=== PATIENT | male | born 1970 | race Caucasian/White ===

== ENCOUNTER 2017-01-14 13:04 | Emergency (ER) | payer OTHER ==
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
--- NOTE | 2017-01-14 15:19 | ED ORDER SUMMARY ---
..... Patient: DERRICK VELIZ JR OrderSheet [facility] VisitID: [id number] [address] [place] [address] 46y, M Registration Date/Time: 01/14/2017 ORDER SHEET Weight: 95.2 kg (stated) Allergies: No Known Drug Allergy GENERAL ORDERS: UA-Culture if indicated Urgent (13:17 01/14/2017 JBoardley R.N. per protocol) (Ack 13:18 PWeiler ER Tech1) (13:18 PWeiler ER Tech1) US Abdomen Limited (No) Urgent (13:31 01/14/2017 HBivens A.R.N.P.) (Ack 13:33 PWeiler ER Tech1) (13:38 HBivens A.R.N.P.) (Cancelled: Other13:38 HBivens A.R.N.P.) CBC w Diff Urgent (13:32 01/14/2017 HBivens A.R.N.P.) (Ack 13:33 PWeiler ER Tech1) (13:34 JBoardley R.N.) CMP Urgent (13:32 01/14/2017 HBivens A.R.N.P.) (Ack 13:33 PWeiler ER Tech1) (13:34 JBoardley R.N.) US Pelvic Complete Urgent (13:38 01/14/2017 HBivens A.R.N.P.) (Ack 13:40 PWeiler ER Tech1) (14:16 HBivens A.R.N.P.) (Cancelled: Other14:16 HBivens A.R.N.P.) - (US Pelvis Limited) (14:16 01/14/2017 HBivens A.R.N.P.) (Ack 14:22 PWeiler ER Tech1) (14:51 JBoardley R.N.) MEDICATION ORDERS: IV FLUIDS: IV Saline Lock (13:32 01/14/2017 HBivens A.R.N.P.) (Ack 13:32 JBoardley R.N.) (13:35 JBoardley R.N.) ORDER SHEET NOTES: [Electronically signed by Amandeep Epstein R.N. (15:44 01/14/2017)] [Electronically signed by Chapis Tejada (15:51 01/14/2017)] [Electronically locked/signed by Amandeep Epstein R.N. (15:44 01/14/2017)]
--- NOTE | 2017-01-14 15:19 | ED ORDER SUMMARY ---
..... Patient: DERRICK VELIZ JR OrderSheet [facility] VisitID: [id number] [address] [place] [address] 46y, M Registration Date/Time: 01/14/2017 ORDER SHEET Weight: 95.2 kg (stated) Allergies: No Known Drug Allergy GENERAL ORDERS: UA-Culture if indicated Urgent (13:17 01/14/2017 JBoardley R.N. per protocol) (Ack 13:18 PWeiler ER Tech1) (13:18 PWeiler ER Tech1) US Abdomen Limited (No) Urgent (13:31 01/14/2017 HBivens A.R.N.P.) (Ack 13:33 PWeiler ER Tech1) (13:38 HBivens A.R.N.P.) (Cancelled: Other13:38 HBivens A.R.N.P.) CBC w Diff Urgent (13:32 01/14/2017 HBivens A.R.N.P.) (Ack 13:33 PWeiler ER Tech1) (13:34 JBoardley R.N.) CMP Urgent (13:32 01/14/2017 HBivens A.R.N.P.) (Ack 13:33 PWeiler ER Tech1) (13:34 JBoardley R.N.) US Pelvic Complete Urgent (13:38 01/14/2017 HBivens A.R.N.P.) (Ack 13:40 PWeiler ER Tech1) (14:16 HBivens A.R.N.P.) (Cancelled: Other14:16 HBivens A.R.N.P.) - (US Pelvis Limited) (14:16 01/14/2017 HBivens A.R.N.P.) (Ack 14:22 PWeiler ER Tech1) (14:51 JBoardley R.N.) MEDICATION ORDERS: IV FLUIDS: IV Saline Lock (13:32 01/14/2017 HBivens A.R.N.P.) (Ack 13:32 JBoardley R.N.) (13:35 JBoardley R.N.) ORDER SHEET NOTES: [Electronically signed by Amandeep Epstein R.N. (15:44 01/14/2017)] [Electronically signed by Chapis Tejada (15:51 01/14/2017)] [Electronically locked/signed by Amandeep Epstein R.N. (15:44 01/14/2017)]
--- NOTE | 2017-01-14 15:52 | ED DISCHARGE INSTRUCTIONS ---
Patient: DERRICK VELIZ JR General Instructions [facility] VisitID: [id number] [address] [place] [address] 46y, M Registration Date/Time: 01/14/2017 Acute suprapubic abdominal pain. Reducible and recurrent right inguinal hernia. No incarcerated hernia, obstruction or gangrene. INSTRUCTIONS Warnings: GENERAL WARNINGS: Return or contact your physician immediately if your condition worsens or changes unexpectedly, if not improving as expected, or if other problems arise. SPECIFICALLY, return if you develop pain in the abdomen or pelvis, fever, the inability to keep fluids down, blood in vomitus, blood in diarrhea, fainting or lightheadedness. Prescription Medications: Ultram 50 mg tablets: take 1-2 orally every 6 hours as needed for pain. Dispense twenty (20). No refills. Substitution is permissible. Understanding of the discharge instructions verbalized by patient. Follow-up with: Alvino Holland MD, General Surgeon, , [place] [id number]; Edin Esquivel MD, General Surgeon, , [place] [address]; Gauri Narayan MD, General Surgery, , [address] [place] [address] Follow up in about two days. Call for an appointment. Summary of care provided to patient. ADDITIONAL INFORMATION Abdominal Pain,Uncertain Cause [Male] Based on your visit today, the exact cause of your abdominalpain is not clear. Your exam and tests do not indicate a dangerous cause at this time. However, the signs of a serious problem may take more time to appear. Although your evaluation was reassuring today, sometimes early in the course of many conditions, exam and lab tests can appear normal. Therefore, it is important for you to watch for any new symptoms or worsening of your condition. Causes It may not be obvious what caused your symptoms. Pay attention to things that do seem to make your symptoms worse or better and discuss this with your doctor when you follow up. Diagnosis The evaluation of abdominal pain in the emergency department may onlyrequire an exam by the doctor or it may include blood, urine or imaging studies, depending on many factors. Sometimes exams and tests can identify a cause but in many cases, a clear cause is not found. Further testing at follow up visits may help to suggest a clear diagnosis. Home Care Rest as much as possible until your next exam. Try to avoid any medications (unless otherwise directed by your doctor), foods, activities, or other factors that you may have contributed to your symptoms. Try to eat foods that you know that you have tolerated well in the past. Certain diets may be recommended for some conditions that cause abdominal pain. However, since the cause of your symptoms may not be clear, discuss your diet more with your primary care provider or specialist for further recommendations. Eating several small meals per day as opposed to 2 or 3 larger meals may help. Monitor closely for anything that may make your symptoms worse or better. Pay close attention to symptoms below that may indicate worsening of your condition. Follow Up and Precautions See your doctoras instructed or sooneror if your symptoms are not improving.In some cases, you may need more testing. When to Seek Medical Attention Contact your doctor or see medical attention ifany of the following occur: Pain is becoming worse You are unable to take your medications due to excessive vomiting Swelling of the abdomen Fever of 100.4F (38C) or higher, or as directed by your health care provider Blood in vomit or bowel movements (dark red or black color) Jaundice (yellow color of eyes and skin) New onset of weakness, dizziness or fainting New onset of chest, arm, back, neck or jaw pain Abdominal Pain, Possible Appendicitis, Repeat Exam, Male Based on your visit today, the exact cause of your abdominal (stomach) pain is not certain. However, you do have some of the early signs of appendicitis. Early in an appendix infection the symptoms can be similar to a simple "stomach ache" or "stomach flu". Therefore, the diagnosis can be hard to make.Since an appendix infection is a serious condition, it is important to know if this is the cause of your symptoms. WAITING for more time to pass and repeating the exam is the best way to find out whether you have appendicitis. Within the next 12-24 hours the cause of your stomach pain should become clear. It is important for you to watch for any new symptoms or worsening of your condition.(See below). Home Care: Rest until your next exam. No strenuous activities. Eat a diet low in fiber (called a low-residue diet). Foods allowed include refined breads, white rice, fruit and vegetable juices without pulp, tender meats. These foods will pass more easily through the intestine. Avoid whole-grain foods, whole fruits and vegetables, meats, seeds and nuts, fried or fatty foods, dairy, alcohol and spicy foods until your symptoms go away. In some cases, you may be asked not to eat or drink anything until you are re-examined. Return for another exam exactly as directed. Follow Up with your doctor or this facility as directed. [NOTE: If you had an X-ray, CT scan, ultrasound, or EKG (cardiogram), it will be reviewed by a specialist. You will be notified of any new findings that may affect your care.] Return Promptly before your next appointment or contact your doctor if any of the following occur: Pain gets worse or moves to the right lower abdomen New or worsening vomiting or diarrhea Swelling of the abdomen Unable to pass stool for more than three days New fever over 100.4 F (38.0 C), or rising fever Blood in vomit or bowel movements (dark red or black color) Weakness, dizziness or fainting Hernia [Adult] A hernia is a bulge of the intestines or surrounding tissues through a tear in the muscle of the abdomen or groin. This may occur as a result of excessive coughing, heavy lifting or being overweight. It can also occur at the site of prior surgery. When a hernia first appears it may be painful due to stretching and tearing of the muscle fibers. When you lie down, the bulge should reduce in size or disappear completely. If it does not, and you are unable to flatten it with your hand, medical attention is needed at once. Home Care: Avoid heavy lifting and straining or any activities that cause pain in the hernia. Follow Up with your physician as directed by our staff. Get Prompt Medical Attention if any of the following occur: Increasing size of the hernia Increasing pain in the hernia A hernia that does not get smaller when you lie down Hardening of the hernia Abdominal swelling, fever or repeated vomiting Pain moves to the lower right abdomen (just below the waistline) or spreads to the back Tramadol Hydrochloride Oral tablet What is this medicine? TRAMADOL (TRA ma dole) is a pain reliever. It is used to treat moderate to severe pain in adults. How should I use this medicine? Take this medicine by mouth with a full glass of water. Follow the directions on the prescription label. If the medicine upsets your stomach, take it with food or milk. Do not take more medicine than you are told to take. Talk to your manager pricing regarding the use of this medicine in children. Special care may be needed. What side effects may I notice from receiving this medicine? Side effects that you should report to your doctor or health ocular care technician as soon as possible: allergic reactions like skin rash, itching or hives, swelling of the face, lips, or tongue breathing difficulties, wheezing confusion itching light headedness or fainting spells redness, blistering, peeling or loosening of the skin, including inside the mouth seizures Side effects that usually do not require medical attention (report to your doctor or health ocular care technician if they continue or are bothersome): constipation dizziness drowsiness headache nausea, vomiting What may interact with this medicine? Do not take this medicine with any of the following medications: MAOIs like Carbex, Eldepryl, Marplan, Nardil, and Parnate This medicine may also interact with the following medications: alcohol or medicines that contain alcohol antihistamines benzodiazepines bupropion carbamazepine or oxcarbazepine clozapine cyclobenzaprine digoxin furazolidone linezolid medicines for depression, anxiety, or psychotic disturbances medicines for migraine headache like almotriptan, eletriptan, frovatriptan, naratriptan, rizatriptan, sumatriptan, zolmitriptan medicines for pain like pentazocine, buprenorphine, butorphanol, meperidine, nalbuphine, and propoxyphene medicines for sleep muscle relaxants naltrexone phenobarbital phenothiazines like perphenazine, thioridazine, chlorpromazine, mesoridazine, fluphenazine, prochlorperazine, promazine, and trifluoperazine procarbazine warfarin What if I miss a dose? If you miss a dose, take it as soon as you can. If it is almost time for your next dose, take only that dose. Do not take double or extra doses. Where should I keep my medicine? Keep out of the reach of children. Store at room temperature between 15 and 30 degrees C (59 and 86 degrees F). Keep container tightly closed. Throw away any unused medicine after the expiration date. What should I tell my health care provider before I take this medicine? They need to know if you have any of these conditions: brain tumor depression drug abuse or addiction head injury if you frequently drink alcohol containing drinks kidney disease or trouble passing urine liver disease lung disease, asthma, or breathing problems seizures or epilepsy suicidal thoughts, plans, or attempt; a previous suicide attempt by you or a family member an unusual or allergic reaction to tramadol, codeine, other medicines, foods, dyes, or preservatives or trying to get breast-feeding What should I watch for while using this medicine? Tell your doctor or health ocular care technician if your pain does not go away, if it gets worse, or if you have new or a different type of pain. You may develop tolerance to the medicine. Tolerance means that you will need a higher dose of the medicine for pain relief. Tolerance is normal and is expected if you take this medicine for a long time. Do not suddenly stop taking your medicine because you may develop a severe reaction. Your body becomes used to the medicine. This does NOT mean you are addicted. Addiction is a behavior related to getting and using a drug for a non-medical reason. If you have pain, you have a medical reason to take pain medicine. Your doctor will tell you how much medicine to take. If your doctor wants you to stop the medicine, the dose will be slowly lowered over time to avoid any side effects. You may get drowsy or dizzy. Do not drive, use machinery, or do anything that needs mental alertness until you know how this medicine affects you. Do not stand or sit up quickly, especially if you are an older patient. This reduces the risk of dizzy or fainting spells. Alcohol can increase or decrease the effects of this medicine. Avoid alcoholic drinks. You may have constipation. Try to have a bowel movement at least every 2 to 3 days. If you do not have a bowel movement for 3 days, call your doctor or health ocular care technician. Your mouth may get dry. Chewing sugarless gum or sucking hard candy, and drinking plenty of water may help. Contact your doctor if the problem does not go away or is severe. You have been given the following additional information: Abdominal Pain, Unknown Cause, (Male) Abdominal Pain, Possible Appendicitis [Male] Hernia (Inguinal, Ventral, Umbilical) Tramadol Hydrochloride Oral tablet (Electronically signed by Chapis Tejada A.R.N.P. 01/14/2017 15:51)
--- NOTE | 2017-01-14 15:52 | ED DISCHARGE INSTRUCTIONS ---
Patient: DERRICK VELIZ JR General Instructions [facility] VisitID: [id number] [address] [place] [address] 46y, M Registration Date/Time: 01/14/2017 Acute suprapubic abdominal pain. Reducible and recurrent right inguinal hernia. No incarcerated hernia, obstruction or gangrene. INSTRUCTIONS Warnings: GENERAL WARNINGS: Return or contact your physician immediately if your condition worsens or changes unexpectedly, if not improving as expected, or if other problems arise. SPECIFICALLY, return if you develop pain in the abdomen or pelvis, fever, the inability to keep fluids down, blood in vomitus, blood in diarrhea, fainting or lightheadedness. Prescription Medications: Ultram 50 mg tablets: take 1-2 orally every 6 hours as needed for pain. Dispense twenty (20). No refills. Substitution is permissible. Understanding of the discharge instructions verbalized by patient. Follow-up with: Alvino Holland MD, General Surgeon, , [place] [address]; Edin Esquivel MD, General Surgeon, , [place] [address]; Gauri Narayan MD, General Surgery, , [address] [place] [address] Follow up in about two days. Call for an appointment. Summary of care provided to patient. ADDITIONAL INFORMATION Abdominal Pain,Uncertain Cause [Male] Based on your visit today, the exact cause of your abdominalpain is not clear. Your exam and tests do not indicate a dangerous cause at this time. However, the signs of a serious problem may take more time to appear. Although your evaluation was reassuring today, sometimes early in the course of many conditions, exam and lab tests can appear normal. Therefore, it is important for you to watch for any new symptoms or worsening of your condition. Causes It may not be obvious what caused your symptoms. Pay attention to things that do seem to make your symptoms worse or better and discuss this with your doctor when you follow up. Diagnosis The evaluation of abdominal pain in the emergency department may onlyrequire an exam by the doctor or it may include blood, urine or imaging studies, depending on many factors. Sometimes exams and tests can identify a cause but in many cases, a clear cause is not found. Further testing at follow up visits may help to suggest a clear diagnosis. Home Care Rest as much as possible until your next exam. Try to avoid any medications (unless otherwise directed by your doctor), foods, activities, or other factors that you may have contributed to your symptoms. Try to eat foods that you know that you have tolerated well in the past. Certain diets may be recommended for some conditions that cause abdominal pain. However, since the cause of your symptoms may not be clear, discuss your diet more with your primary care provider or specialist for further recommendations. Eating several small meals per day as opposed to 2 or 3 larger meals may help. Monitor closely for anything that may make your symptoms worse or better. Pay close attention to symptoms below that may indicate worsening of your condition. Follow Up and Precautions See your doctoras instructed or sooneror if your symptoms are not improving.In some cases, you may need more testing. When to Seek Medical Attention Contact your doctor or see medical attention ifany of the following occur: Pain is becoming worse You are unable to take your medications due to excessive vomiting Swelling of the abdomen Fever of 100.4F (38C) or higher, or as directed by your health care provider Blood in vomit or bowel movements (dark red or black color) Jaundice (yellow color of eyes and skin) New onset of weakness, dizziness or fainting New onset of chest, arm, back, neck or jaw pain Abdominal Pain, Possible Appendicitis, Repeat Exam, Male Based on your visit today, the exact cause of your abdominal (stomach) pain is not certain. However, you do have some of the early signs of appendicitis. Early in an appendix infection the symptoms can be similar to a simple "stomach ache" or "stomach flu". Therefore, the diagnosis can be hard to make.Since an appendix infection is a serious condition, it is important to know if this is the cause of your symptoms. WAITING for more time to pass and repeating the exam is the best way to find out whether you have appendicitis. Within the next 12-24 hours the cause of your stomach pain should become clear. It is important for you to watch for any new symptoms or worsening of your condition.(See below). Home Care: Rest until your next exam. No strenuous activities. Eat a diet low in fiber (called a low-residue diet). Foods allowed include refined breads, white rice, fruit and vegetable juices without pulp, tender meats. These foods will pass more easily through the intestine. Avoid whole-grain foods, whole fruits and vegetables, meats, seeds and nuts, fried or fatty foods, dairy, alcohol and spicy foods until your symptoms go away. In some cases, you may be asked not to eat or drink anything until you are re-examined. Return for another exam exactly as directed. Follow Up with your doctor or this facility as directed. [NOTE: If you had an X-ray, CT scan, ultrasound, or EKG (cardiogram), it will be reviewed by a specialist. You will be notified of any new findings that may affect your care.] Return Promptly before your next appointment or contact your doctor if any of the following occur: Pain gets worse or moves to the right lower abdomen New or worsening vomiting or diarrhea Swelling of the abdomen Unable to pass stool for more than three days New fever over 100.4 F (38.0 C), or rising fever Blood in vomit or bowel movements (dark red or black color) Weakness, dizziness or fainting Hernia [Adult] A hernia is a bulge of the intestines or surrounding tissues through a tear in the muscle of the abdomen or groin. This may occur as a result of excessive coughing, heavy lifting or being overweight. It can also occur at the site of prior surgery. When a hernia first appears it may be painful due to stretching and tearing of the muscle fibers. When you lie down, the bulge should reduce in size or disappear completely. If it does not, and you are unable to flatten it with your hand, medical attention is needed at once. Home Care: Avoid heavy lifting and straining or any activities that cause pain in the hernia. Follow Up with your physician as directed by our staff. Get Prompt Medical Attention if any of the following occur: Increasing size of the hernia Increasing pain in the hernia A hernia that does not get smaller when you lie down Hardening of the hernia Abdominal swelling, fever or repeated vomiting Pain moves to the lower right abdomen (just below the waistline) or spreads to the back Tramadol Hydrochloride Oral tablet What is this medicine? TRAMADOL (TRA ma dole) is a pain reliever. It is used to treat moderate to severe pain in adults. How should I use this medicine? Take this medicine by mouth with a full glass of water. Follow the directions on the prescription label. If the medicine upsets your stomach, take it with food or milk. Do not take more medicine than you are told to take. Talk to your typesetting machine tender regarding the use of this medicine in children. Special care may be needed. What side effects may I notice from receiving this medicine? Side effects that you should report to your doctor or health transitional care manager as soon as possible: allergic reactions like skin rash, itching or hives, swelling of the face, lips, or tongue breathing difficulties, wheezing confusion itching light headedness or fainting spells redness, blistering, peeling or loosening of the skin, including inside the mouth seizures Side effects that usually do not require medical attention (report to your doctor or health transitional care manager if they continue or are bothersome): constipation dizziness drowsiness headache nausea, vomiting What may interact with this medicine? Do not take this medicine with any of the following medications: MAOIs like Carbex, Eldepryl, Marplan, Nardil, and Parnate This medicine may also interact with the following medications: alcohol or medicines that contain alcohol antihistamines benzodiazepines bupropion carbamazepine or oxcarbazepine clozapine cyclobenzaprine digoxin furazolidone linezolid medicines for depression, anxiety, or psychotic disturbances medicines for migraine headache like almotriptan, eletriptan, frovatriptan, naratriptan, rizatriptan, sumatriptan, zolmitriptan medicines for pain like pentazocine, buprenorphine, butorphanol, meperidine, nalbuphine, and propoxyphene medicines for sleep muscle relaxants naltrexone phenobarbital phenothiazines like perphenazine, thioridazine, chlorpromazine, mesoridazine, fluphenazine, prochlorperazine, promazine, and trifluoperazine procarbazine warfarin What if I miss a dose? If you miss a dose, take it as soon as you can. If it is almost time for your next dose, take only that dose. Do not take double or extra doses. Where should I keep my medicine? Keep out of the reach of children. Store at room temperature between 15 and 30 degrees C (59 and 86 degrees F). Keep container tightly closed. Throw away any unused medicine after the expiration date. What should I tell my health care provider before I take this medicine? They need to know if you have any of these conditions: brain tumor depression drug abuse or addiction head injury if you frequently drink alcohol containing drinks kidney disease or trouble passing urine liver disease lung disease, asthma, or breathing problems seizures or epilepsy suicidal thoughts, plans, or attempt; a previous suicide attempt by you or a family member an unusual or allergic reaction to tramadol, codeine, other medicines, foods, dyes, or preservatives or trying to get breast-feeding What should I watch for while using this medicine? Tell your doctor or health transitional care manager if your pain does not go away, if it gets worse, or if you have new or a different type of pain. You may develop tolerance to the medicine. Tolerance means that you will need a higher dose of the medicine for pain relief. Tolerance is normal and is expected if you take this medicine for a long time. Do not suddenly stop taking your medicine because you may develop a severe reaction. Your body becomes used to the medicine. This does NOT mean you are addicted. Addiction is a behavior related to getting and using a drug for a non-medical reason. If you have pain, you have a medical reason to take pain medicine. Your doctor will tell you how much medicine to take. If your doctor wants you to stop the medicine, the dose will be slowly lowered over time to avoid any side effects. You may get drowsy or dizzy. Do not drive, use machinery, or do anything that needs mental alertness until you know how this medicine affects you. Do not stand or sit up quickly, especially if you are an older patient. This reduces the risk of dizzy or fainting spells. Alcohol can increase or decrease the effects of this medicine. Avoid alcoholic drinks. You may have constipation. Try to have a bowel movement at least every 2 to 3 days. If you do not have a bowel movement for 3 days, call your doctor or health transitional care manager. Your mouth may get dry. Chewing sugarless gum or sucking hard candy, and drinking plenty of water may help. Contact your doctor if the problem does not go away or is severe. You have been given the following additional information: Abdominal Pain, Unknown Cause, (Male) Abdominal Pain, Possible Appendicitis [Male] Hernia (Inguinal, Ventral, Umbilical) Tramadol Hydrochloride Oral tablet (Electronically signed by Chapis Tejada A.R.N.P. 01/14/2017 15:51)
--- NOTE | 2017-01-14 15:52 | ED MED RECONCILIATION SUMMARY ---
Patient: DERRICK VELIZ JR Medication Reconciliation Report [facility] VisitID: [id number] [address] [place] [address] 46y, M Registration Date/Time: 01/14/2017 Weight: 95.2 kg Height/Length: 75 in. BMI: 26.2 ALLERGIES: No Known Drug Allergy The patient's Home Medications are listed below: THE FOLLOWING MEDICATIONS NEED TO BE RECONCILED: Albuterol-Ipratropium Inhalation, prn The source(s) of the original Home Medication information: patient patient's family member The following Medications were given to the patient in the Emergency Department: None. The following Medications were prescribed to the patient: Ultram 50 mg tablets: take 1-2 orally every 6 hours as needed for pain. Dispense twenty (20). No refills. Substitution is permissible. -- Chapis Tejada A.R.N.P.
--- NOTE | 2017-01-14 15:52 | ED MAR SUMMARY ---
..... Medication Administration Record [facility] [address] [place], [place] [id number] Patient: DERRICK VELIZ Visit ID: [id number] 46y, M Weight: 95.2 kg Height/Length: 75 in BMI: 26.2 ALLERGIES: No Known Drug Allergy
--- NOTE | 2017-01-14 15:52 | ED MED RECONCILIATION SUMMARY ---
Patient: DERRICK VELIZ JR Medication Reconciliation Report [facility] VisitID: [id number] [address] [place] [address] 46y, M Registration Date/Time: 01/14/2017 Weight: 95.2 kg Height/Length: 75 in. BMI: 26.2 ALLERGIES: No Known Drug Allergy The patient's Home Medications are listed below: THE FOLLOWING MEDICATIONS NEED TO BE RECONCILED: Albuterol-Ipratropium Inhalation, prn The source(s) of the original Home Medication information: patient patient's family member The following Medications were given to the patient in the Emergency Department: None. The following Medications were prescribed to the patient: Ultram 50 mg tablets: take 1-2 orally every 6 hours as needed for pain. Dispense twenty (20). No refills. Substitution is permissible. -- Chapis Tejada A.R.N.P.
--- NOTE | 2017-01-14 15:52 | ED MAR SUMMARY ---
..... Medication Administration Record [facility] [address] [place] [id number] Patient: DERRICK VELIZ Visit ID: [id number] 46y, M Weight: 95.2 kg Height/Length: 75 in BMI: 26.2 ALLERGIES: No Known Drug Allergy
--- NOTE | 2017-01-14 16:16 | DIAGNOSTIC IMAGING REPORT ---
PROCEDURE: US PELVIC LIMITED INDICATION: INGUINAL PAIN, R HIP PAIN, RULE OUT HERNIA TECHNIQUE: Multiple longitudinal and transverse sonograms were obtained through the right groin area COMPARISON: None FINDINGS: The left side was scanned for comparison is normal. On the right there is a 2.3 cm break in the fascial area. There is an inguinal hernia just medial to the vessels. This appears to contain bowel. This reduces with compression. Does not appear to go into the right scrotum. This may represent an indirect hernia. IMPRESSION: 1. Right inguinal hernia, and possibly indirect.
== END 2017-01-14 15:23 | disposition home or self-care (01) ==
LOC: ED SRH 13:04
DX: K40.91 Unilateral inguinal hernia, without obstruction or gangrene, recurrent (principal); R10.30 Lower abdominal pain, unspecified; Y99.0 Civilian activity done for income or pay; Z79.899 Other long term (current) drug therapy; F17.210 Nicotine dependence, cigarettes, uncomplicated
CPT/HCPCS: 90004; 90100; 95059

== ENCOUNTER 2017-01-29 10:07 | Outpatient (CLI) | payer OTHER | END 2017-01-29 23:00 | disposition home or self-care (01) | LOC: LAB SRH 10:07 | DX: R31.9 Hematuria, unspecified (principal) | CPT/HCPCS: 90004 ==